=== PATIENT | male | born 1935 | race Caucasian/White ===

== ENCOUNTER → 2016-07-01 | Outpatient (CLI) | payer MEDICARE ==
[~2016-07-01] MED LIST: ASPI81TA81 PO; GEMF600T PO; GLIP5TAB8 PO; HYDR-3516 PO; LATA0.002 EACH EYE; LYRI75CA PO; NIFE60TA58 PO; PERC5TAB12 PO; VALS1TAB70 PO
--- NOTE | 2016-07-01 11:39 | RADRPT ---
EXAM DATE/TIME: 07/01/2016 00:00 [place] COMPARISON: No previous studies available for comparison. INDICATIONS : Dysphagia FLUORO TIME: 2.9 minutes IMAGE COUNT: 0 CONTRAST: Dose as prescribed by speech pathologist. MEDICAL HISTORY : None. SURGICAL HISTORY : None. ENCOUNTER: Initial ACUITY: 2 months PAIN SCORE: 0/10 LOCATION: esophagus FINDINGS: A modified barium swallow was performed with speech pathology. Patient was given a variety of liquids to swallow. Cervical esophagus is normal in motility and structure. For a full detailed report, see report by the speech pathologist. CONCLUSION: Please see speech pathology report. Negative examination Jovi Fernandez MD on July 01, 2016 at 11:37 Board Certified Radiologist. This report was verified electronically.
== END ==
LOC: HRAD 09:43
DX: R13.12 Dysphagia, oropharyngeal phase (principal)
CPT/HCPCS: 74230; 92611; G8996; G8997; G8998

== ENCOUNTER → 2016-12-29 | Day surgery (SDC) | payer MEDICARE ==
[~2016-12-29] MED LIST changes: +GENTAMICIN SULFATE 80 MG/2 ML VIAL ONE; +ONDANSETRON HCL 4 MG/2 ML VIAL IV PUSH ONE; +PROPOFOL 200 MG/20 ML AMP IV ONE; +SODIUM CHLORIDE 0.9% INJ 100 ML IV ONE
--- NOTE | 2016-12-29 12:32 | TN ---
cc: CORAL SCHMIDT M.D. 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 Urethral strictures (ICD-10 code N35.9) PROCEDURE Cystourethroscopy with transurethral resection of bladder tumor (TURBT)(CPT code 81011) INDICATION Mr. 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 FINDINGS Multiple pendulous and bulbous urethral strictures mild to moderate. 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 The bladder neck is elevated and hypertrophic and at the 6 o'clock position there is a papillary tumor which is on a narrow stalk. It is farley in color, smooth with significant vascularity associated with it. There are no additional lesions identified in the bladder neck or throughout the bladder. The ureteral orifice is normal size, shape and position effluxing clear urine and uninvolved. There is some mild trabeculation of the bladder, but otherwise no diverticula, cellules, or additional suspicious mucosa or lesions. PROCEDURE IN DETAIL The procedure, as well as the risks and benefits were explained to the patient. Informed consent was obtained. The patient was taken to the major operative theater where he was placed in the supine position. The patient was identified as well as the operative site. A universal time-out was performed in the standard fashion. At this time, general anesthetic and prophylactic intravenous antibiotics consisting of gentamicin 80 mg was administered. After adequate anesthetic, he was prepped and draped in the usual sterile fashion. At this time, there was some difficulty entering the urethra with a 22.5 Georgian cystoscope and a 30 degree lens due to his severe strictured areas. There was a small false passage which was eventually negotiated and was able to enter the bladder where a 30 and 70 lens was used to systematically survey the entire bladder. At this time using rigid biopsy forceps, the tumor was resected. It took several passes to remove all of the tumor due to its size and it was very friable. The base of the tumor was fulgurated with a Bugbee probe. The bladder was then inspected. There was confirmed hemostasis with no additional tumors or lesions. The cystoscope was then removed and an 18-Georgian catheter was placed into the bladder to straight drain with clear urine effluxing. The patient tolerated procedure well, emerged from anesthetic without difficulty and transferred to the recovery room stable condition to be discharged home when criteria is met. The patient will maintain the Stahl catheter for 5-7 days additionally. MD CHERRIE Gross/DENIZ /12:17 PM /12:24 PM
== END | disposition home or self-care (01) ==
LOC: ESDC 08:48
PROVIDERS: ATTEND Urology
DX: D30.3 Benign neoplasm of bladder (principal); N35.9 Urethral stricture, unspecified
CPT/HCPCS: 00912; 52235; 88307; C1769; J1580; J2405; J3010